=== PATIENT | female | born 1985 | race Caucasian/White ===

== ENCOUNTER 2021-07-07 11:57 | Emergency (ER) | payer OTHER ==
[2021-07-07 12:46] LABS: RED BLOOD COUNT 2.19 M/UL (4.00-5.10); WHITE BLOOD COUNT 4.6 K/UL (4.5-11.0)
[2021-07-07 13:16] LABS: BUN/CREATININE RATIO 20 (0-10)
[2021-07-07 13:24] LABS: HEMOGLOBIN 4.3 gm/dl (12.3-15.3)
[2021-07-07 22:14] LABS: HEMOGLOBIN 7.7 gm/dl (12.3-15.3)
== END 2021-07-07 22:30 | disposition home or self-care (01) ==
LOC: ER1 11:57
PROVIDERS: Family Medicine
DX: D64.9 Anemia, unspecified (principal); N93.9 Abnormal uterine and vaginal bleeding, unspecified; F17.200 Nicotine dependence, unspecified, uncomplicated
CPT/HCPCS: 36430; 80053; 81001; 84703; 85014; 85018; 85025; 86850; 86900; 86901; 86920; 99284; P9016